=== PATIENT | female | born 1935 | race Caucasian/White ===

== ENCOUNTER → 2017-04-01 | Outpatient (CLI) | payer OTHER | LOC: BHLMT 10:30 | PROVIDERS: ATTEND Internal Medicine Cardiovascular Disease | DX: I44.7 Left bundle-branch block, unspecified (principal); I47.1 Supraventricular tachycardia; I10 Essential (primary) hypertension; R07.89 Other chest pain; E78.5 Hyperlipidemia, unspecified | CPT/HCPCS: 93005-PO ==

== ENCOUNTER → 2017-04-09 | Outpatient (CLI) | payer OTHER | LOC: BHLMT 13:30 | PROVIDERS: ATTEND Internal Medicine Cardiovascular Disease | DX: R07.9 Chest pain, unspecified (principal) | CPT/HCPCS: 78452; 93017; A9500; J2785 ==

== ENCOUNTER → 2017-04-24 | Outpatient (CLI) | payer OTHER | LOC: BHLMT 13:15 | PROVIDERS: ATTEND Internal Medicine Interventional Cardiology | DX: R07.9 Chest pain, unspecified (principal); R94.31 Abnormal electrocardiogram [ECG] [EKG]; I10 Essential (primary) hypertension | CPT/HCPCS: 93306-PO ==

== ENCOUNTER → 2017-05-17 | Outpatient (CLI) | payer OTHER | LOC: BHLMT 10:30 | PROVIDERS: ATTEND Internal Medicine Cardiovascular Disease | DX: I47.1 Supraventricular tachycardia (principal); I44.7 Left bundle-branch block, unspecified; I10 Essential (primary) hypertension; E78.00 Pure hypercholesterolemia, unspecified | CPT/HCPCS: 93005-PO ==

== ENCOUNTER → 2017-05-21 | Outpatient (CLI) | payer OTHER | LOC: BHLMT 11:00 | PROVIDERS: ATTEND Internal Medicine Interventional Cardiology | DX: I44.7 Left bundle-branch block, unspecified (principal); I47.1 Supraventricular tachycardia | CPT/HCPCS: 93225-PO; 93226-PO ==

== ENCOUNTER → 2017-08-13 | Outpatient (CLI) | payer OTHER | LOC: BHLMT 15:30 | PROVIDERS: ATTEND Internal Medicine Cardiovascular Disease | DX: I49.1 Atrial premature depolarization (principal) ==

== ENCOUNTER → 2018-01-27 | Outpatient (CLI) | payer OTHER | LOC: FCPNEURO 20:00 | PROVIDERS: ATTEND Psychiatry & Neurology Sleep Medicine | DX: G47.33 Obstructive sleep apnea (adult) (pediatric) (principal); G47.61 Periodic limb movement disorder ==

== ENCOUNTER → 2018-02-21 | Outpatient (CLI) | payer OTHER | LOC: FCPNEURO 03:29 | PROVIDERS: ATTEND Psychiatry & Neurology Sleep Medicine | DX: G47.33 Obstructive sleep apnea (adult) (pediatric) (principal); G47.61 Periodic limb movement disorder ==

== ENCOUNTER → 2018-10-06 | Outpatient (CLI) | payer OTHER | LOC: BHFA 13:15 | PROVIDERS: ATTEND Internal Medicine Cardiovascular Disease | DX: R06.02 Shortness of breath (principal); I34.0 Nonrheumatic mitral (valve) insufficiency | CPT/HCPCS: 78452; 93017; 93306; A9500; J2785 ==

== ENCOUNTER 2018-10-29 09:24 | Observation (INO) | payer OTHER ==
[2018-10-29] MEDS ORDERED: NS 1,000 ML IV ONE (09:29)
[2018-10-29] MEDS ORDERED: ASPIRIN EC 325 MG TAB PO ONE ×2 (09:29→09:48)
[2018-10-29] MEDS ORDERED: diphenhydrAMINE 25 MG CAP PO ONE ×2 (09:29→09:47)
[2018-10-29] MEDS ORDERED: DIAZEPAM 5 MG TAB PO ONE (09:29)
[2018-10-29] MEDS ORDERED: FAMOTIDINE 20 MG TAB PO ONE (09:29)
[2018-10-29] MEDS ORDERED: FAMOTIDINE 20 MG TAB ONE (09:48)
[2018-10-29] MEDS ORDERED: DIAZEPAM 5 MG TAB ONE (09:48)
[2018-10-29 10:23] LABS: PLATELET COUNT 141 10^3/uL (150-400)
[2018-10-29 10:30] LABS: INR 1.08 (0.83-1.16); PROTIME(PATIENT) 14.2 SEC (12.0-15.0)
[2018-10-29] MEDS ORDERED: IOPAMIDOL (ISOVUE-370) 150 ML BTL IV ONE (10:57)
[2018-10-29] MEDS ORDERED: MIDAZOLAM 2 MG/2 ML VIAL ONE (10:57)
[2018-10-29] MEDS ORDERED: fentaNYL 100 MCG/2 ML INJ ONE (10:57)
[2018-10-29] MEDS ORDERED: LIDOCAINE 1% 300 MG/30 ML SDV ONE (10:57)
--- NOTE | 2018-10-29 11:04 | PDPROPOC ---
Sedation Plan of Care Sedation Plan of Care: vital signs stable, mental status noted, patient educated of risks, benefits, alternatives, patient can tolerate sedation ASA Classification: ASA 3 Planned drugs: fentanyl, midazolam Mallampati Score: Class 2 Mallampati Reference Image: Patient passed 3-3-2 rule?: Yes
--- NOTE | 2018-10-29 11:04 | PDHPUP ---
History & Physical Update H&P update statement: This history and physical update is based on an assessment of the patient which was completed after admission or registration (within 24 hours), but prior to the surgery/procedure. H&P update: H&P reviewed & patient examined, no change in patient's condition since H&P completed
--- NOTE | 2018-10-29 11:29 | PDDXCAT ---
Diagnostic Cath Note - . Date: 10/29/18 Homogenizer Operator: Lloyd Indication: CCC Class III and IV angina on medical treatment, other ( intermediate risk stress test) - Procedure Access: right groin Procedure: left heart catheterization, coronary angiography - Materials Left Heart Cath size: 6F Left Heart Cath materials: JL4.0 - Findings-Left Heart Catheterization LM: The left main is 8mm in size and short. The vessel quickly bifurcates into a left anterior descending and circumflex system. There is ALEXUS III flow. LAD: The left anterior descending is 3.75mm in size. There are luminal irregularities consistent with underlying atherosclerosis. Maximal luminal stenosis is 30% distal to the first major diagonal. LCX: The circumflex is 4mm in size. There is no evidence of flow-limiting obstruction. There is ALEXUS III flow throughout. RCA: The right coronary artery is 4mm in size and dominant. The vessel is widely patent with ALEXUS III flow. EDP: 23mmHg LVEF: 50% Wall motion: The EF is 50% with distal inferior wall dyskinesis. The visualized portion of the thoracic aortic valve reveals three sinuses of valsalva most consistent with a trileaflet valve. There is no gradient on pullback across the aortic valve. There is no evidence of jenn dissection or aneurysm formation - Findings-Right Heart Catheterization AO: 183/76/116 Complications: NONE Estimated blood loss: <50ml Closure method: Angioseal Assessment: The patient has [place] vessel coronary disease without evidence of flow limiting obstruction. The patient has a distal inferior wall left ventricular aneurysm with associated dyskinesis of unclear etiology. 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 There is a "napkin ring" 30% lesion of the LAD just distal to the major diagonal takeoff. No flow limiting stenosis is noted. On the LV gram there was not evidence of significant mitral regurgitation with pressurized injection. Plan: The patient has non-flow limiting coronary disease that should be treated medically to achieve a non-HDL Cholesterol of less than 100 mg/dL. The patient' s blood pressure was noted to be significantly elevated during the procedure and could be more aggressively managed. Intervention: NONE
[2018-10-29] MEDS ORDERED: METOPROLOL TARTRATE 5 MG/5 ML INJ ONE (11:45)
[2018-10-29] MEDS ORDERED: ONDANSETRON 4 MG/2 ML VIAL IVP PRN (12:02)
[2018-10-29] MEDS ORDERED: ATROPINE SULFATE 1 MG/10 ML SYR IVP PRN (12:02)
[2018-10-29] MEDS ORDERED: NITROGLYCERIN 0.4 MG BTL SL PRN (12:02)
[2018-10-29] MEDS ORDERED: CARBOXYMETHYLCELLULOSE 1% 0.4 ML DROPERETTE EACHEYE PRN (12:06)
[2018-10-29] MEDS ORDERED: LORazepam 0.5 MG TAB PO PRN (12:06)
[2018-10-29] MEDS ORDERED: NON-FORMULARY NEW DRUG (Triamcinolone Acetonide [Nasacort] 1 SPRAY) NS PRN (12:06)
--- NOTE | 2018-10-29 16:38 | CPEKG ---
Test Reason : OPEN Blood Pressure : / mmHG Vent. Rate : 084 BPM Atrial Rate : 084 BPM P-R Int : 164 ms QRS Dur : 157 ms QT Int : 497 ms P-R-T Axes : 076 -72 093 degrees QTc Int : 588 ms Sinus rhythm Probable left atrial enlargement Left bundle branch block Confirmed by Gabriel Waggoner ([id number]) on 10/29/2018 4:38:15 PM Referred By: Confirmed By:Gabriel Waggoner
[2018-10-29] MEDS: FAMOTIDINE 20 MG TAB PO SCH (19:55)
[2018-10-29] MEDS: METOPROLOL SUCCINATE XR 25 MG TAB PO SCH (19:55)
[2018-10-30] MEDS ORDERED: LEVOTHYROXINE 75 MCG TAB PO SCH (06:00)
[2018-10-30 07:49] VITALS: BP 168/88
[2018-10-30] MEDS ORDERED: OMEGA-3 FATTY ACIDS 1,000 MG CAP PO SCH (09:00)
[2018-10-30] MEDS ORDERED: CHOLECALCIFEROL VIT D3 1,000 UNITS TAB PO SCH (09:00)
[2018-10-30] MEDS ORDERED: OXYBUTYNIN 5 MG EXT REL TAB PO SCH (09:00)
[2018-10-30] MEDS ORDERED: ATORVASTATIN CALCIUM 40 MG TAB PO SCH (09:00)
[2018-10-30] MEDS ORDERED: NON-FORMULARY NEW DRUG (Fenofibrate,Micronized [Fenofibrate] 134 MG) PO SCH (09:00)
[2018-10-30] MEDS ORDERED: CLOPIDOGREL BISULFATE 75 MG TAB PO SCH (09:00)
[2018-10-30] MEDS ORDERED: Herbals/Supplements -Info Only PO SCH (09:00)
[2018-10-30] MEDS ORDERED: amLODIPine BESYLATE 5 MG TAB PO SCH (09:00)
[2018-10-30] MEDS ORDERED: CYANO/VITAMIN B12 1000 MCG TAB PO SCH (09:00)
[2018-10-30] MEDS: METOPROLOL SUCCINATE XR 25 MG TAB PO SCH (09:41)
[2018-10-30] MEDS: FAMOTIDINE 20 MG TAB PO SCH (09:42)
--- NOTE | 2018-10-30 10:13 | ASDISCHSUM ---
Discharge Information Plan Status:Home with No Needs Medically Cleared to Leave:10/29/2018 Discharge Date:10/29/2018 CM D/C Disposition:Home, Routine, Self-Care ADT D/C Disposition:Home, Routine, Self-Care Projected Discharge Date:10/29/2018 Transportation at D/C:Family Discharge Delay Reason: Follow-Up Date:10/29/2018 Discharge Slot: Final Diagnosis: Placement Information Patient Contact Information Contact Name:ANTOINE Relationship:Garcia Address: Work Phone: City: [facility] Phone: State/Zip Code: Email: Financial Information Financial Class:Medicare Primary Plan Desc:MEDICARE OUTPATIENT Primary Plan Number:[id number] Secondary Plan Desc:[employer] Secondary Plan Number:[id number] Assessment Information LACE LACE Length of stay for Answers: Less than 1 day current admission Acuity / Level of Answers: No Care: Did the patient have an inpatient admission? Comorbidities - select Answers: Cerebrovascular disease all that apply (CVA, TIA, aneurysms, vasc ular dementia) Opioid dependence / Chronic pain Other Notes: HTN; Hypothyroid # of Emergency department Answers: 0 visits in the last 6 months Score: 6 Date Signed: 10/30/2018 10:12 AM Electronically Signed By:Aileen Ballard RN Intervention Information Intervention Type:DULCE-Signed Date of Service:10/30/2018 10:08 AM Patient Type:Observation Staff Member:Nissa Chadwick Hours: Discipline: Severity: Comment:
--- NOTE | 2018-10-30 11:00 | GDS ---
DISCHARGE DIAGNOSES: 1. Coronary artery disease with 30% stenosis within the 1st diagonal. 2. 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 3. Zabpdejy-gm-svvaxs mitral regurgitation. 4. Moderate tricuspid regurgitation. HOSPITAL COURSE: For detailed H and P, please see prior dictation. Briefly, the patient is an 83-ye ar-old female with a history of zsbojeks-xe-eumlcm mitral regurgitation, hypertension, and hyperlipid emia who presented to our office complaining of exertional chest discomfort and shortness of breath. Nuclear stress test was abnormal showing a moderate reduction in ejection fraction of 43% with moder ate septal and inferior akinesis. There was also septal and inferior perfusion defect. Given the abnormal findings, the decision was made to proceed with an angiogram. This was performed by Dr. Michael Desai on October 29, 2018. She was identified to have a mildly reduced ejection fracti on of 50% with only mild coronary disease without obstruction. There was a 30% stenosis to the 1st d iagonal. The remaining arteries were free of significant disease. The patient was unable to go home after her procedure, and therefore, she remained in the hospital 1 night. She denied any chest disc omfort or groin discomfort where access was obtained for the angiogram prior to discharge. Her blood pressure was labile and elevated at the time of discharge, but she just received her morning medicat ions. PHYSICAL EXAMINATION: GENERAL: Patient appears in no acute distress. VITAL SIGNS: Blood pressure 168/88, heart rate 67, oxygen saturation 92% on room air, afebrile. LUNGS: Clear to auscultation. No wheezes, rhonchi, or crackles auscultated. CARDIAC: Regular rate and rhythm. EXTREMITIES: Righ t groin where access was obtained for the angiogram is clean, intact without any evidence of infectio n or hematoma. DISCHARGE MEDICATIONS: Her medications are unchanged. She will continue Norvasc 5 mg daily, Lipitor 40 mg daily, levothyroxine 75 mcg daily, Meloxicam 15 mg daily, metoprolol 25 mg daily, ranitidine 1 50 mg b.i.d., Plavix 75 mg daily, Fenofibrate 134 mg daily, oxybutynin 5 mg daily, vitamin D 1000 uni ts daily, melatonin at bedtime, fish oil daily, multivitamin daily, vitamin B12 daily, Ativan 0.5 mg p.r.n. for anxiety, herbal supplement daily, Refresh eye drops daily, Nasacort p.r.n. PLAN: The patient is currently stable and ready for discharge home. She has been given groin precau tions. Her coronary artery disease should be treated medically and her LDL is currently at goal at 4 4. Her blood pressure has been labile, but she has not had her hypertensive medications regularly ov er the last 2 days. She will keep a blood pressure log and follow up as scheduled with Dr. Desai. /[id number]/MODL
== END 2018-10-30 11:03 | disposition home or self-care (01) ==
LOC: FCATH 09:24 → F2W 12:02
PROVIDERS: ADMIT Internal Medicine Cardiovascular Disease; ATTEND Internal Medicine Cardiovascular Disease
DX: I25.10 Atherosclerotic heart disease of native coronary artery without angina pectoris (principal); I34.0 Nonrheumatic mitral (valve) insufficiency; I36.1 Nonrheumatic tricuspid (valve) insufficiency; I25.3 Aneurysm of heart; R94.39 Abnormal result of other cardiovascular function study; I42.9 Cardiomyopathy, unspecified; I10 Essential (primary) hypertension; E78.5 Hyperlipidemia, unspecified; E03.9 Hypothyroidism, unspecified; G47.33 Obstructive sleep apnea (adult) (pediatric); I44.7 Left bundle-branch block, unspecified; I47.1 Supraventricular tachycardia; Z86.73 Personal history of transient ischemic attack (TIA), and cerebral infarction without residual deficits
CPT/HCPCS: 93005; 93458; J1644; J2250; Q9967; J3010